=== PATIENT | male | born 1965 | race Caucasian/White ===

== ENCOUNTER 2024-06-14 12:17 | Inpatient (IN) | payer OTHER ==
[2024-06-14 13:17] VITALS: BMI 23.7
[2024-06-14] MEDS ORDERED: NALOXONE (NYS OPIOID OVERDOSE PROGRAM) 4 MG/0.1 ML SPRAY NS PRN (14:55)
[2024-06-14] MEDS ORDERED: NALOXONE (NARCAN) HCL 4 MG/0.1 ML SPRAY NS PRN (14:55)
[2024-06-14] MEDS ORDERED: cloNIDine HCL 0.1 MG TABLET PO PRN (14:55)
[2024-06-14] MEDS ORDERED: IBUPROFEN 400 MG TABLET (FP) PO PRN (14:55)
[2024-06-14] MEDS ORDERED: BENZOCAINE/MENTHOL (CHLORASEPTIC ) LOZENGE MM PRN (14:55)
[2024-06-14] MEDS ORDERED: hydrOXYzine PAMOATE 25 MG CAPSULE (FP) PO PRN (14:55)
[2024-06-14] MEDS ORDERED: BENZONATATE 200 MG CAPSULE PO PRN (14:55)
[2024-06-14] MEDS ORDERED: P-EPHED 60MG/TRIPROLIDI 2.5MG TABLET PO PRN (14:55)
[2024-06-14] MEDS ORDERED: MAG HYDROX/AL HYDROX/SIMETH 30 ML UNIT-DOSE CUP PO PRN (14:55)
[2024-06-14] MEDS ORDERED: POLYETHYLENE GLYCOL (HEALTHYLAX) 3350 17 GM PACKET PO PRN (14:55)
[2024-06-14] MEDS ORDERED: DICYCLOMINE HCL 10 MG CAPSULE PO PRN (14:55)
[2024-06-14] MEDS ORDERED: LOPERAMIDE HCL 2 MG CAPSULE PO PRN (14:55)
[2024-06-14] MEDS ORDERED: ONDANSETRON *ODT* 4 MG TABLET SL PRN (14:55)
[2024-06-14] MEDS ORDERED: MAGNESIUM HYDROX 2400MG/30ML ORAL SUSPENSION 30 ML CUP PO PRN (14:55)
[2024-06-14] MEDS ORDERED: NICOTINE POLACRILEX 2 MG GUM BUC PRN (14:55)
[2024-06-14] MEDS ORDERED: guaiFENesin 600 MG TABLET.ER (FP) PO PRN (14:55)
[2024-06-14] MEDS ORDERED: METHOCARBAMOL 500 MG TABLET PO PRN (14:55)
[2024-06-14] MEDS ORDERED: BISMUTH SUBSALICYLATE 524 MG/30 ML PO PRN (14:55)
[2024-06-14] MEDS ORDERED: methaDONE HCL 10 MG TABLET (FOR DETOX USE ONLY) ONE (18:05)
[2024-06-14] MEDS: methaDONE HCL 10 MG TABLET (FOR DETOX USE ONLY) PO ONE (18:18)
[2024-06-14] MEDS: MELATONIN 5 MG TABLETS PO SCH (22:03)
[2024-06-14] MEDS: THIAMINE 100 MG TABLET PO SCH (22:03)
[2024-06-14] MEDS: TOLNAFTATE 1% CREAM 15 GM TUBE TP PRN (22:04)
[2024-06-15] MEDS: PRENATAL VITAMINS W/ FOLIC ACID TABLET (FP) PO SCH (09:33)
[2024-06-15] MEDS: NICOTINE 21 MG/24 HOURS TOPICAL PATCH TD SCH (09:56)
[2024-06-15 11:15] LABS: HEMATOCRIT 40.7 % (35.4-49); HEMOGLOBIN 13.6 GM/dL (11.7-16.9); MCH 32.7 pg (25.7-33.7); MCHC 33.3 g/dl (32.0-35.9); MEAN CELL VOLUME 98.3 fl (80-96); MEAN PLT VOLUME 9.2 fl (7.5-11.1); PLATELET COUNT 208 10^3/uL (134-434); RBC 4.14 M/mm3 (4.00-5.60); RDW 12.5 % (11.9-15.9)
[2024-06-15 11:31] LABS: CHLORIDE 101 mmol/L (98-107); POTASSIUM 4.2 mmol/L (3.5-5.1); SODIUM 139 mmol/L (136-145)
[2024-06-15 11:45] LABS: ALBUMIN 3.4 g/dl (3.4-5.0); ANION GAP 4 mmol/L (4-13); BLOOD UREA NITROGEN 20.9 mg/dL (7-18); CALCIUM 9.4 mg/dL (8.5-10.1); CO2 35 mmol/L (21-32); GLUCOSE,RANDOM 141 mg/dL (74-106)
[2024-06-15 11:48] LABS: CREATININE 0.9 mg/dL (0.55-1.3); SGOT/AST 29 U/L (15-37); SGPT/ALT 27 U/L (13-61)
[2024-06-15 11:50] LABS: BILIRUBIN,TOTAL 0.7 mg/dL (0.2-1)
[2024-06-15 11:51] LABS: ALK PHOS 115 U/L (45-117)
[2024-06-15] MEDS ORDERED: diazePAM 5 MG TABLET PO PRN (15:43)
[2024-06-15] MEDS ORDERED: hydrOXYzine PAMOATE 50 MG CAPSULE (FP) PO PRN (15:45)
[2024-06-15] MEDS: METHOCARBAMOL 500 MG TABLET PO PRN (22:21)
[2024-06-16] MEDS: IBUPROFEN 600 MG TABLET (FP) PO PRN (05:47)
[2024-06-16] MEDS: methaDONE HCL 10 MG TABLET (FOR DETOX USE ONLY) PO ONE (10:54)
[2024-06-16] MEDS: diazePAM 5 MG TABLET PO SCH (12:06)
[2024-06-16] MEDS: ACETAMINOPHEN 325 MG TABLET (FP) PO PRN (22:22)
[2024-06-17] MEDS: diazePAM 5 MG TABLET PO PRN (01:17)
[2024-06-17] MEDS: diazePAM 5 MG TABLET PO SCH (05:13)
[2024-06-17 09:19] VITALS: RESP 16; TEMP 97.7
[2024-06-17] MEDS: NAPROXEN 500 MG TABLET PO SCH (10:28)
[2024-06-17 13:47] VITALS: BP 143/84; PULSE 70
[2024-06-18] MEDS ORDERED: diazePAM 5 MG TABLET PO SCH (06:00)
[2024-06-18] MEDS ORDERED: methaDONE HCL 10 MG TABLET (FOR DETOX USE ONLY) PO ONE (10:00)
[2024-06-19] MEDS ORDERED: diazePAM 5 MG TABLET PO ONE (06:00)
== END 2024-06-17 14:45 | disposition home or self-care (01) | DRG 773 ==
LOC: YASAS 12:17 → Y3N 18:04
PROVIDERS: ADMIT Allergy & Immunology; ATTEND Surgery
PROC: HZ2ZZZZ Detoxification Services for Substance Abuse Treatment (ICD-10-PCS; principal; 2024-06-14)
DX: F11.23 Opioid dependence with withdrawal (principal); F10.230 Alcohol dependence with withdrawal, uncomplicated; F14.20 Cocaine dependence, uncomplicated; F12.20 Cannabis dependence, uncomplicated; F17.210 Nicotine dependence, cigarettes, uncomplicated; F41.9 Anxiety disorder, unspecified; F32.A Depression, unspecified; G47.00 Insomnia, unspecified; B18.2 Chronic viral hepatitis C
CPT/HCPCS: 36415; 71045-TC-FY; 80053; 80305; 80307; 85027; 86780; 93005; 93010